=== PATIENT | female | born 1975 | race Caucasian/White ===

== ENCOUNTER 2018-01-18 10:53 | Emergency (ER) | payer BC, OTHER ==
[~2018-01-18] VITALS: Ht 162.6 cm; Wt 91.6 kg
[2018-01-18 11:38] LABS: ABSOLUTE NEUTROPHILS 10.6 thou/uL (1.4-8.2); BASOPHILS 0.2 % (0.0-2.0); EOSINOPHILS 0.8 % (0.0-3.0); HEMATOCRIT 38.4 % (37.0-47.0); HEMOGLOBIN 13.3 gm/dL (12.0-15.0); LYMPHOCYTES 3.9 % (24.0-44.0); MCH 31.4 pg (26.0-34.0); MCHC 34.6 g/dL (28.0-37.0); MCV 90.7 fL (80.0-100.0); MONOCYTES 7.5 % (1.0-8.0); PLATELET COUNT 282 thou/uL (150-400); POLYS 87.6 % (36.0-66.0); RBC 4.23 mil/uL (4.20-5.00); RDW 11.9 % (10.5-14.5)
[2018-01-18] MEDS ORDERED: TRILEPTAL150 MG PO ×2 (11:41)
[2018-01-18] MEDS ORDERED: LAMICTAL100 MG PO ×2 (11:41)
[2018-01-18] MEDS ORDERED: CLONAZEPAM 1 MG1 M1 PO (11:41)
[2018-01-18 11:46] LABS: CALCIUM 8.7 mg/dL (8.5-10.1); CREATININE 0.7 mg/dL (0.6-1.0)
[2018-01-18] MEDS ORDERED: MUCINEX D ER 61 EACH PO (12:52)
[2018-01-18] MEDS ORDERED: FLONASE 0.05%50 MCG NASAL (12:52)
[2018-01-18] MEDS ORDERED: TESSALON PERLE100 MG PO (12:52)
[2018-01-18 13:52] VITALS: BP 115/69
== END 2018-01-18 13:54 | disposition home or self-care (01) ==
LOC: ER 10:53
PROVIDERS: Student in an Organized Health Care Education/Training Program
DX: J06.9 Acute upper respiratory infection, unspecified (principal); F41.9 Anxiety disorder, unspecified

== ENCOUNTER 2018-03-31 19:08 | Emergency (ER) | payer BC, OTHER ==
[~2018-03-31] VITALS: Ht 162.6 cm; Wt 90.7 kg
[~2018-03-31 19:08] MED LIST: CLONAZEPAM 1 MG1 M1 PO; FLONASE 0.05%50 MCG NASAL; LAMICTAL100 MG PO; MUCINEX D ER 61 EACH PO; TESSALON PERLE100 MG PO; TRILEPTAL150 MG PO
[2018-03-31] MEDS ORDERED: NAPROSYN500 MG PO (19:38)
[2018-03-31 20:17] VITALS: BP 122/79
== END 2018-03-31 20:18 | disposition home or self-care (01) ==
LOC: ER 19:08
DX: M43.6 Torticollis (principal); Z71.1 Person with feared health complaint in whom no diagnosis is made; F41.9 Anxiety disorder, unspecified

== ENCOUNTER 2018-06-24 14:27 | Emergency (ER) | payer BC, OTHER ==
[~2018-06-24] VITALS: Ht 162.6 cm; Wt 93.0 kg
[~2018-06-24 14:27] MED LIST changes: +NAPROSYN500 MG PO
[2018-06-24] MEDS ORDERED: NORCO 5-325 TA1 EACH PO (15:36)
[2018-06-24 16:29] VITALS: BP 126/85
== END 2018-06-24 16:10 | disposition home or self-care (01) ==
LOC: ER 14:27
DX: M25.511 Pain in right shoulder (principal); F41.9 Anxiety disorder, unspecified; Z98.890 Other specified postprocedural states; V43.52XA Car driver injured in collision with other type car in traffic accident, initial encounter; Y93.89 Activity, other specified; Y92.89 Other specified places as the place of occurrence of the external cause; Y99.8 Other external cause status